=== PATIENT | female | born 1975 | race Caucasian/White ===

== ENCOUNTER 2025-04-16 01:45 | Inpatient (IN) | payer MEDICAID, OTHER ==
[~2025-04-16] VITALS: Ht 167.6 cm; Wt 63.6 kg
--- NOTE | 2025-04-16 02:18 | ED.PDOC ---
GI ASSESSMENT HPI Comments 49-year-old female who came to ER for abdominal pain. Patient denies any abdominal surgeries. States for the past 3 weeks she has been having intermittent episodes of epigastric abdominal pain, the progressively worsened yesterday. Denies any nausea, vomiting or changes in bowel habits. Denies any possibility of . Chief Complaint: Abdominal Pain Time Seen by MD: 02:18 Reviewed Notes: Nurses Notes Allergies: Coded Allergies: Acetaminophen (Verified Allergy, Unknown, 04/16/25) Information Source: Patient Mode of Arrival: EMS Past Medical History PAST MEDICAL HISTORY: Denies Surgical History: Denies all surgeries RESTA[employer] CREW History: Denies all RESTA[employer] CREW Hx Family History Family History: Reviewed,noncontributory to illness Social History Smoker: Non-Smoker Alcohol: Denies ETOH Use Drugs: Denies Drug Use Lives In: Home Constitutional: denies: chills, diaphoresis, fatigue, fever, malaise, sweats, weakness, others EENTM: denies: blurred vision, double vision, ear bleeding, ear discharge, ear drainage, ear pain, ear ringing, eye pain, eye redness, hearing loss, mouth pa in, mouth swelling, nasal discharge, nose bleeding, nose congestion, nose pain, photophobia, tearing, throat pain, throat swelling, voice changes, others Respiratory: denies: cough, hemoptysis, orthopnea, SOB at rest, shortness of breath, SOB with excertion, stridor, wheezing, others Cardiovascular: denies: chest pain, dizzy spells, diaphoresis, Dyspnea on exertion, edema, irregular heart beat, left arm pain, lightheadedness, palpitations, PND, syncope, others Gastrointestinal: reports: abdominal pain; denies: abdomen distended, blood streaked bowels, constipated, diarrhea, dysphagia, difficulty swallowing, hematemesis, melena, nausea, poor appetite, poor fluid intake, rectal bleeding, rectal pain, vomiting, others Genitourinary: denies: abnormal vagina bleeding, burning, dyspareunia, dysuria, flank pain, frequency, hematuria, incontinence, pain, , vagina discharge, urgency, others Neurological: denies: dizziness, fainting, headache, left sided numbness, left sided weakness, numbness, paresthesia, pre-existing deficit, right sided numbness, right sided weakness, seizure, speech problems, tingling, tremors, weakness, others Musculoskeletal: denies: back pain, gout, joint pain, joint swelling, muscle pain, muscle stiffness, neck pain, others Integumetry: denies: bruises, change in color, change in hair/nails, dryness, laceration, lesions, lumps, rash, wounds, others Allergic/Immunocompromised: denies: Difficulty Healing, Frequent Infections, Hives, Itching, others Hematologic/Lymphatic: denies: anemia, blood clots, easy bleeding, easy bruisi ng, swollen glands, others Endocrine: denies: excessive hunger, excessive sweating, excessive thirst, exce ssive urination, flushing, intolerance to cold, intolerance to heat, unexplained weight gain, unexplained weight loss, others Psychiatric: denies: anxiety, bipolar disorder, depression, hopeless, panic disorder, schizophrenia, sleepless, suicidal, others Physical Exam General Appearance: No Apparent Distress, Normal HEENT: Normal ENT Inspection, Pharynx Normal, TMs Normal Neck: Full Range of Motion, Non-Tender, Normal, Normal Inspection Respiratory: Chest Non-Tender, Lungs Clear, No Accessory Muscle Use, No Respi ratory Distress, Normal Breath Sounds Cardiovascular: No Edema, No JVD, No Murmur, No Gallop, Normal Peripheral Pulses, Regular Rate/Rhythm Breast Exam: Deferred Gastrointestinal: Epigastric, No Organomegaly, No Pulsatile Mass, Normal Bowel Sounds, Soft, Tenderness Genitalia: Deferred Pelvic: Deferred Rectal: Deferred Extremities: No calf tenderness, Normal capillary refill, Normal inspection, Normal range of motion, Non-tender, No pedal edema Musculoskeletal : Apperance: Normal Neurologic: Alert, textile examiner II-XII nml as Tested, No Motor Deficits, Normal Affect, Normal Mood, No Sensory Deficits Cerebellar Function: Normal Reflexes: Normal Skin: Dry, Normal Color, Warm Lymphatic: No Adenopathy Was a procedure done? Was a procedure done?: No GI differential Dx Differential Diagnosis: Cholecystitis, Constipation, Diverticular disease, Gastritis/PUD, Gastroenteritis, Pancreatitis, UTI, Urolithiasis X-Ray, Labs, Meds, VS Vital Signs Date Time Temp Pulse Resp B/P (MAP) Pulse Ox O2 Delivery O2 Flow Rate FiO2 04/16/25 04:00 87 13 104/57 (73) 95 04/16/25 02:40 101 15 97 Room Air* 0 21 04/16/25 02:39 97.9 101 15 102/52 (69) 97 97.9 04/16/25 01:45 98.2 107 18 137/78 99 98.2 Lab Test 04/16/25 02:12 Range/Units White Blood Count 11.7 H 4.4-10.8 10^3/uL Red Blood Count 3.98 L 4.0-5.20 10^6/uL Hemoglobin 12.0 L 12.2-16.2 g/dL Hematocrit 35.4 L 36.0-46.0 % Mean Corpuscular Volume 88.8 80.0-100.0 fL Mean Corpuscular Hemoglobin 30.1 28.0-32.0 pg Mean Corpuscular Hemoglobin Concent 33.9 32.0-36.0 g/dL Red Cell Distribution Width 14.0 11.8-14.3 % Platelet Count 385 140-450 10^3/uL Mean Platelet Volume 7.9 6.9-10.8 fL Neutrophils (%) (Auto) 73.2 37.0-80.0 % Lymphocytes (%) (Auto) 17.5 10.0-50.0 % Monocytes (%) (Auto) 7.4 0.0-12.0 % Eosinophils (%) (Auto) 1.4 0.0-7.0 % Basophils (%) (Auto) 0.5 0.0-2.0 % Neutrophils # (Auto) 8.6 1.6-8.6 10 ^3/uL Lymphocytes # (Auto) 2.0 0.4-5.4 10 ^3/uL Monocytes # (Auto) 0.9 0-1.3 10 ^3/uL Eosinophils # (Auto) 0.2 0-0.8 10 ^3/uL Basophils # (Auto) 0.1 0-0.2 10 ^3/uL Nucleated Red Blood Cells 0.1 % Sodium Level 138 136-145 mmol/L Potassium Level 3.9 3.5-5.1 mmol/L Chloride Level 101 98-107 mmol/L Carbon Dioxide Level 28 20-31 mmol/L Anion Gap 9 5-15 Blood Urea Nitrogen 8 L 9-23 mg/dL Creatinine 0.63 0.550-1.02 mg/dL Glomerular Filtration Rate Calc 110 >90 mL/min BUN/Creatinine Ratio 12.7 10.0-20.0 Serum Glucose 93 74-106 mg/dL Calcium Level 9.2 8.7-10.4 mg/dL Total Bilirubin 0.6 0.2-1.0 mg/dL Aspartate Amino Transferase (AST) 26 13-40 U/L Alanine Aminotransferase (ALT) 18 7-40 U/L Alkaline Phosphatase 71 46-116 U/L Total Protein 7.2 5.7-8.2 g/dL Albumin 3.9 3.2-4.8 g/dL Lipase 70 H 12-53 U/L INDICATION: RUQ pain TECHNIQUE: Multiple real-time sonographic images were obtained of the right upper quadrant. COMPARISON: None FINDINGS: Hepatic echogenicity is normal. The liver measures 15 cm. The common duct is not visualized. The gallbladder is without evidence of stone or sludge. Wall thickness measures 2 mm. Reportedly negative sonographic Lewis's sign. The right kidney measures 9.7 cm. No visualized hydronephrosis, stone, or lesion. The pancreas is not well visualized due to overlying bowel gas. No visualized ascites. IMPRESSION: 1. Unremarkable right upper quadrant ultrasound. Time of 1ST Reevaluation: 02:16 Reevaluation 1ST: Unchanged Patient Education/Counseling: Diagnosis, Treatment Family Education/Counseling: No Family Present SEPSIS Sepsis Screen Date sepsis recognized/suspect: Apr 16, 2025 Time Sepsis recognized/suspect: 014 Recent Procedure: No On Antibiotic Therapy: No Respiratory Rate >20: No Heart Rate >90: No Temp<36 C (96.8 F) or >38.3 C: No SBP <90 or MAP <65 mmHG: No New Acute Mental Status Change: No Is the patient on CPAP, BIPAP,: No Physician Orders Urinalysis (04/16/25 02:04) Gallbladder (04/16/25 02:04) Test, Urine (04/16/25 02:04) Ct Ab Pel With Iv Con Only (04/16/25 03:34) Vital Signs Date Time Temp Pulse Resp B/P (MAP) Pulse Ox O2 Delivery O2 Flow Rate FiO2 04/16/25 04:00 87 13 104/57 (73) 95 04/16/25 02:40 101 15 97 Room Air* 0 21 04/16/25 02:39 97.9 101 15 102/52 (69) 97 97.9 04/16/25 01:45 98.2 107 18 137/78 99 98.2 Laboratory Tests Test 04/16/25 02:12 White Blood Count 11.7 10^3/uL (4.4-10.8) H Departure 1 Departure Time of Disposition: 06:00 Impression: Primary Impression: Acute pancreatitis Additional Impression: Intractable abdominal pain Disposition: ADMITTED INPATIENT Admit to: Med Surg Condition: Guarded Discharged With: Significant Other Comments 49-year-old female with severe upper abdominal pain. Lipase is elevated at 70. Gallbladder did not show any gallstones. Patient is still having pain and nausea on re-evaluation. I ordered a CT scan of the abdomen. Patient will need to be admitted for intractable abdominal pain and acute pancreatitis. Critical Care Note Critical Care Time?: Yes (35 min-critical care time only) Critical care comment: Total critical care time: Approximately 36 minutes Due to a high probability of clinically significant, life threatening deterioration, the patient required my highest level of preparedness to intervene emergently and I personally spent this critical care time directly and personally managing the patient. This critical care time included obtaining a history; examining the patient; pulse oximetry; ordering and review of studies; arranging urgent treatment with development of a management plan; evaluation of patient's response to treatment; frequent reassessment; and, discussions with other providers. This critical care time was performed to assess and manage the high probability of imminent, life-threatening deterioration that could result in multi-organ failure. It was exclusive of separately billable procedures and treating other patients. Stability Stability form required: No Heart Score Heart Score: Heart Score Response (Comments) Value History N/A 0 EKG N/A 0 Age N/A 0 Risk Factors N/A 0 Troponin N/A 0 Total 0 I personally scribed for ALICIA KAUR MD ([email or web address]) on 04/16/25 at 02:18. Electronically submitted by Ciro Bo ([facility] I personally scribed for ALICIA KAUR MD ([email or web address]) on 04/16/25 at 04:41. Electronically submitted by Ciro Bo ([email or web address]). ALICIA KAUR MD Apr 16, 2025 02:18
[2025-04-16 02:21] LABS: Hematocrit 35.4 % (36.0-46.0); Hemoglobin 12.0 g/dL (12.2-16.2); Mean Corpuscular Hemoglobin 30.1 pg (28.0-32.0); Mean Corpuscular Volume 88.8 fL (80.0-100.0); Nucleated Red Blood Cells % 0.1 %
[2025-04-16 02:37] LABS: Alanine Aminotransferase 18 U/L (7-40); Albumin 3.9 g/dL (3.2-4.8); Alkaline Phosphatase 71 U/L (46-116); Anion Gap 9 (5-15); BUN/Creatinine Ratio 12.7 (10.0-20.0); Calcium 9.2 mg/dL (8.7-10.4); Carbon Dioxide 28 mmol/L (20-31); Chloride 101 mmol/L (98-107); Glucose 93 mg/dL (74-106); Potassium 3.9 mmol/L (3.5-5.1); Sodium 138 mmol/L (136-145); Total Protein 7.2 g/dL (5.7-8.2)
[2025-04-16 02:38] LABS: Bilirubin, Total 0.6 mg/dL (0.2-1.0)
[2025-04-16 02:39] LABS: Blood Urea Nitrogen 8 mg/dL (9-23); Lipase 70 U/L (12-53)
[2025-04-16 02:40] VITALS: PULSE 101; RESP 15; O2SAT 97
--- NOTE | 2025-04-16 02:54 | DVH ---
INDICATION: RUQ pain TECHNIQUE: Multiple real-time sonographic images were obtained of the right upper quadrant. COMPARISON: None FINDINGS: Hepatic echogenicity is normal. The liver measures 15 cm. The common duct is not visualized. The gallbladder is without evidence of stone or sludge. Wall thickness measures 2 mm. Reportedly negative sonographic Lewis's sign. The right kidney measures 9.7 cm. No visualized hydronephrosis, stone, or lesion. The pancreas is not well visualized due to overlying bowel gas. No visualized ascites. IMPRESSION: 1. Unremarkable right upper quadrant ultrasound.
--- NOTE | 2025-04-16 06:13 | DVHHP2 ---
History of Present Illness Reason for Visit: Acute pancreatitis History of Present Illness The patient is a 49-year-old female who denies past medical history presented to [facility] ED with complaint of abdominal pain. Patient reports she has been experiencing intermittent episode of epigastric abdominal pain for the past 3 weeks. Patient was seen and evaluated in the ED, laboratory data shows WBC 11.7, hemoglobin 12.0, hematocrit 35.4, platelets 385, sodium 138, potassium 3.9, BUN eight, creatinine 0.63, GFR 110, glucose 93, lipase 70, blood pressure 91/43, heart rate 90, temperature 97.9 F, O2 saturation 97% on room air. Gallbladder imaging remarkable right upper quadrant ultrasound. Please see medication orders section in the computer. On my assessment, patient denied chest pain, no headache, dizziness, diaphoresis, shortness of breaths, no abdominal pain at this moment, diarrhea, nausea, vomiting, fever, no chills. Patient was admitted for further evaluation and medical management. Past Medical History Denies past medical history Past Surgical History Denies all surgeries Family History Reviewed, noncontributory to the management of this case. Past Social History The patient lives at home, denies smoking, alcohol or illicit drugs abuse. Review of Systems Constitutional: No: Fever, Chills, Sweats, Weakness, Malaise, Other Eyes: No: Pain, Vision change, Conjunctivae inflammation, Eyelid inflammation, Other, Redness ENT: No: Ear pain, Ear discharge, Nose pain, Nose discharge, Nose congestion, Mouth pain, Mouth swelling, Throat pain, Throat swelling, Other Respiratory: No: Cough, Dry, Shortness of breath, SOB with excertion, Wheezing, Hemoptysis, Pleuritic Pain, Sputum, Wheezing, Other Cardiovascular: No: Chest Pain, Palpitations, Orthopnea, Paroxysmal Noc. Dyspnea, Edema, Lt Headedness, Other Gastrointestinal: Abdominal Pain; No: Nausea, Vomiting, Diarrhea, Constipation, Melena, Hematochezia, Other Genitourinary: No Dysuria, No Frequency, No Incontinence, No Hematuria, No Retention, No Other Musculoskeletal: No: other, neck pain, shoulder pain, arm pain, back pain, hand pain, leg pain, foot pain Skin: No: Rash, Lesions, Jaundice, Bruising, Other Neurological: No: Weakness, Numbness, Incoordination, Change in speech, Confusion, Seizures, Other Allergies: Coded Allergies: Acetaminophen (Verified Allergy, Unknown, 04/16/25) Exam Vital Signs Vital Signs Date Time Temp Pulse Resp B/P (MAP) Pulse Ox O2 Delivery O2 Flow Rate FiO2 04/16/25 06:00 90 18 91/43 (59) 95 04/16/25 02:40 Room Air* 0 21 04/16/25 02:39 97.9 97.9 General Appearance: Alert, Oriented X3, Cooperative, No acute distress HEENT: Atraumatic, PERRLA, EOMI, Mucous membr. moist/pink Respiratory: Clear to auscultation, Normal air movement Cardiovascular: Regular rate, Normal S1, Normal S2, No murmurs Abdominal: Normal bowel sounds, Soft, No tenderness, No hepatospenomegaly, No masses Extremities: No clubbing, No cyanosis, No edema, Normal pulses, No tenderness/swelling Skin: No rashes, No breakdown, No significant lesion Neuro: Normal gait, Normal speech, Strength at 5/5 X4 ext, Normal tone, Sensation intact, Cranial nerves 3-12 NL, Reflexes 2+ Psych/Mental Status: Mental status NL, Mood NL Labs/Xrays Labs Test 04/16/25 06:00 04/16/25 02:12 Range/Units White Blood Count 11.7 H 4.4-10.8 10^3/uL Red Blood Count 3.98 L 4.0-5.20 10^6/uL Hemoglobin 12.0 L 12.2-16.2 g/dL Hematocrit 35.4 L 36.0-46.0 % Mean Corpuscular Volume 88.8 80.0-100.0 fL Mean Corpuscular Hemoglobin 30.1 28.0-32.0 pg Mean Corpuscular Hemoglobin Concent 33.9 32.0-36.0 g/dL Red Cell Distribution Width 14.0 11.8-14.3 % Platelet Count 385 140-450 10^3/uL Mean Platelet Volume 7.9 6.9-10.8 fL Neutrophils (%) (Auto) 73.2 37.0-80.0 % Lymphocytes (%) (Auto) 17.5 10.0-50.0 % Monocytes (%) (Auto) 7.4 0.0-12.0 % Eosinophils (%) (Auto) 1.4 0.0-7.0 % Basophils (%) (Auto) 0.5 0.0-2.0 % Neutrophils # (Auto) 8.6 1.6-8.6 10 ^3/uL Lymphocytes # (Auto) 2.0 0.4-5.4 10 ^3/uL Monocytes # (Auto) 0.9 0-1.3 10 ^3/uL Eosinophils # (Auto) 0.2 0-0.8 10 ^3/uL Basophils # (Auto) 0.1 0-0.2 10 ^3/uL Nucleated Red Blood Cells 0.1 % Sodium Level 138 136-145 mmol/L Potassium Level 3.9 3.5-5.1 mmol/L Chloride Level 101 98-107 mmol/L Carbon Dioxide Level 28 20-31 mmol/L Anion Gap 9 5-15 Blood Urea Nitrogen 8 L 9-23 mg/dL Creatinine 0.63 0.550-1.02 mg/dL Glomerular Filtration Rate Calc 110 >90 mL/min BUN/Creatinine Ratio 12.7 10.0-20.0 Serum Glucose 93 74-106 mg/dL Calcium Level 9.2 8.7-10.4 mg/dL Total Bilirubin 0.6 0.2-1.0 mg/dL Aspartate Amino Transferase (AST) 26 13-40 U/L Alanine Aminotransferase (ALT) 18 7-40 U/L Alkaline Phosphatase 71 46-116 U/L Total Protein 7.2 5.7-8.2 g/dL Albumin 3.9 3.2-4.8 g/dL Lipase 70 H 12-53 U/L PATIENT: DAVID GARNICA ACCT: [id number] UNIT: [id number] : 1975 LOC: ER ROOM / BED: / AGE / SEX: 49 / F ADM STATUS: REG ER SERVICE 0204 ORDERING PHYSICIAN: ALICIA KAUR MD PROCEDURE(s): GBUS - GALLBLADDER REASON: RUQ pain ORDER NUMBER(s): [id number], ACCESSION NUMBER(s): [id number] INDICATION: RUQ pain TECHNIQUE: Multiple real-time sonographic images were obtained of the right upper quadrant. COMPARISON: None FINDINGS: Hepatic echogenicity is normal. The liver measures 15 cm. The common duct is not visualized. The gallbladder is without evidence of stone or sludge. Wall thickness measures 2 mm. Reportedly negative sonographic Lewis's sign. The right kidney measures 9.7 cm. No visualized hydronephrosis, stone, or lesion. The pancreas is not well visualized due to overlying bowel gas. No visualized ascites. IMPRESSION: 1. Unremarkable right upper quadrant ultrasound. SEPSIS Sepsis Screen Date sepsis recognized/suspect: Apr 16, 2025 Time Sepsis recognized/suspect: 239 Recent Procedure: No On Antibiotic Therapy: No Respiratory Rate >20: No Heart Rate >90: Yes Temp<36 C (96.8 F) or >38.3 C: No SBP <90 or MAP <65 mmHG: No New Acute Mental Status Change: No Is the patient on CPAP, BIPAP,: No Physician Orders Urinalysis (04/16/25 02:04) Gallbladder (04/16/25 02:04) Test, Urine (04/16/25 02:04) Ct Ab Pel With Iv Con Only (04/16/25 03:34) Complete Blood Count (04/16/25 06:06) Comprehensive Metabolic Panel (04/16/25 06:06) Lipase (04/16/25 08:00) Admit (04/16/25 06:06) Allergies (04/16/25 06:06) Code Status (04/16/25 06:06) 0.9% Ns 1000 Ml (04/16/25 06:15) Oxygen Per Hour (04/16/25 06:06) Ondansetron Hcl (Zofran) (04/16/25 06:15) Docusate Sodium Capsule (Colace Capsule) (04/16/25 06:15) Complete Blood Count (04/17/25 04:00) Comprehensive Metabolic Panel (04/17/25 04:00) Vital Signs Date Time Temp Pulse Resp B/P (MAP) Pulse Ox O2 Delivery O2 Flow Rate FiO2 04/16/25 06:00 90 18 91/43 (59) 95 04/16/25 04:00 87 13 104/57 (73) 95 04/16/25 02:40 101 15 97 Room Air* 0 21 04/16/25 02:39 97.9 101 15 102/52 (69) 97 97.9 04/16/25 01:45 98.2 107 18 137/78 99 98.2 Laboratory Tests Test 04/16/25 02:12 White Blood Count 11.7 10^3/uL (4.4-10.8) H Assessment/Plan Assessment/Plan Acute pancreatitis Leukocytosis, unspecified Intractable abdominal pain Plan 1. Admit to med surge unit 2. Breathing treatment 3. Pain control management 4. Management of fluids and electrolytes 5. Consultation for hospitalist 6. Diagnostic tests gallbladder ultrasound 7. DVT prophylaxis on SCDs 8. Repeat labs CBC, lipase, CMP in a.m. 9. Continue with current medical management 10. Treatment plan discussed with patient and RN. Patient verbalized understanding. Plan discussed with: Patient, Other (RN) My Orders Orders - RICHARD FRAGOSO DNP Procedure Category Date Status Time Complete Blood Count LAB 04/16/25 Verified 06:06 Comprehensive LAB 04/16/25 Verified Metabolic Panel 06:06 Lipase LAB 04/16/25 Verified 08:00 Admit ADMIT 04/16/25 Verified 06:06 Allergies FLOR 04/16/25 Verified 06:06 Code Status CODE 04/16/25 Verified 06:06 0.9% Ns 1000 Ml PHA 04/16/25 Verified 06:15 Oxygen Per Hour RT 04/16/25 Verified 06:06 Ondansetron Hcl PHA 04/16/25 Verified (Zofran) 06:15 Docusate Sodium PHA 04/16/25 Verified Capsule (Colace 06:15 Complete Blood Count LAB 04/17/25 Verified 04:00 Comprehensive LAB 04/17/25 Verified Metabolic Panel 04:00 Problem List: (1) Acute pancreatitis (2) Leukocytosis, unspecified (3) Intractable abdominal pain Date of Service: Apr 16, 2025 Billing Provider: RICHARD FRAGOSO DNP Common Visit Codes: 35416-[facility] INP/OBS CARE (MOD) RICHARD FRAGOSO DNP Apr 16, 2025 06:13
[2025-04-16] MEDS ORDERED: MORPHINE SULFATE INJ 2 MG/ml SYRG IV PRN ×2 (06:15)
[2025-04-16] MEDS ORDERED: ONDANSETRON HCL 4 MG/2 ML VIAL IV PRN (06:15)
[2025-04-16] MEDS ORDERED: DOCUSATE SOD 100 MG CAP PO PRN (06:15)
[2025-04-16] MEDS ORDERED: NITROGLYCERIN 0.4 MG SL TAB SL PRN (06:15)
[2025-04-16] MEDS: SODIUM CHLORIDE 0.9% 1,000 ML IV SCH (06:40)
[2025-04-16 06:41] LABS: Urine Protein, UAD Negative (Negative)
[2025-04-16 07:19] LABS: Hematocrit 34.5 % (36.0-46.0); Hemoglobin 11.7 g/dL (12.2-16.2); Mean Corpuscular Hemoglobin 30.0 pg (28.0-32.0); Mean Corpuscular Volume 88.0 fL (80.0-100.0); Nucleated Red Blood Cells % 0.1 %
[2025-04-16 07:26] LABS: Alanine Aminotransferase 16 U/L (7-40); Albumin 3.6 g/dL (3.2-4.8); Anion Gap 7 (5-15); BUN/Creatinine Ratio 9.0 (10.0-20.0); Blood Urea Nitrogen 6 mg/dL (9-23); Calcium 9.1 mg/dL (8.7-10.4); Carbon Dioxide 29 mmol/L (20-31); Chloride 104 mmol/L (98-107); Glucose 85 mg/dL (74-106); Potassium 3.5 mmol/L (3.5-5.1); Sodium 140 mmol/L (136-145); Total Protein 6.7 g/dL (5.7-8.2)
[2025-04-16 07:27] LABS: Bilirubin, Total 0.6 mg/dL (0.2-1.0)
[2025-04-16] MEDS: IBUPROFEN 600 MG TAB PO PRN (07:27)
[2025-04-16] MEDS: IOHEXOL 300 MG/ML 100ML BOTTLE IJ ONE (07:34)
[2025-04-16 07:40] LABS: Alkaline Phosphatase 65 U/L (46-116)
--- NOTE | 2025-04-16 07:45 | DVH ---
CLINICAL INFORMATION: Abdominal pain. TECHNIQUE: Axial CT images of the abdomen and pelvis were obtained after the uneventful administration of 100 mL Omnipaque 300 IV contrast. Coronal and sagittal reformatted images were obtained, reviewed, and stored. All CT scans at this medical facility are performed using dose modulation techniques as appropriate to a performed exam including the following: Automated exposure control was utilized; adjustment of the MA and/or KV according to patient size; and use of iterative reconstruction technique. CTDIvol = 6.8 mGy DLP = 348.64 mGy-cm COMPARISON: None FINDINGS: Lung bases: Atelectasis in the lung bases. Liver: Hepatic steatosis. Biliary: No calcified gallstones or biliary ductal dilatation. Spleen: Unremarkable. Pancreas: Unremarkable. No inflammatory changes, ductal dilatation, or mass identified. Adrenal glands: Unremarkable. No mass. Kidneys: No hydronephrosis or mass. Small nonobstructing bilateral renal calculi. Aorta/Vascular: No aneurysm or significant calcification. Lymph Nodes: No mass or lymphadenopathy. Bowel/mesentery: Nonspecific nondilated fluid-filled small bowel loops. No small bowel obstruction. Appendix is not visualized. Moderate stool in the colon. Pelvic organs: Uterus is enlarged and heterogeneous with calcified leiomyoma measuring up to 7.2 cm in the uterine fundus. Bladder: Underdistended and suboptimally evaluated. Abdominal wall: No mass or hernia. Bones: No acute fracture or focal intraosseous lesion. Moderate arthritic changes are seen in both hips, with prominent subchondral cystic change at the right femoral head. IMPRESSION: 1. Nonspecific nondilated fluid-filled small bowel loops. Findings may be seen with ileus or enteritis in the appropriate clinical setting. No small bowel obstruction. 2. Moderate stool in the colon. 3. Leiomyomatous uterus. 4. Additional findings as described above.
[2025-04-16 08:00] VITALS: TEMP 97.7
[2025-04-16 10:00] VITALS: BP 92/57; PULSE 82; RESP 12; O2SAT 97
== END 2025-04-16 12:55 | disposition left against medical advice (07) | DRG 282 ==
LOC: EDBD 01:45 → ER 01:45 → OVERFLOW 06:06
PROVIDERS: ADMIT Hospitalist; ATTEND Hospitalist
DX: K85.90 Acute pancreatitis without necrosis or infection, unspecified (principal); D72.829 Elevated white blood cell count, unspecified; Z53.29 Procedure and treatment not carried out because of patient's decision for other reasons; Z88.6 Allergy status to analgesic agent
CPT/HCPCS: 36415; 74177; 76705; 80053; 81001; 81025; 83690; 85025; 99291; G0378